=== PATIENT | male | born 1940 | race Caucasian/White ===

== ENCOUNTER 2017-04-27 18:06 | Observation (INO) | payer MEDICARE ==
[~2017-04-27] VITALS: Ht 182.9 cm; Wt 81.1 kg
--- NOTE | ~2017-04-27 | HEMODYNAMI ---
PATIENT:HEATHER ASIF MEDICAL RECORD: [id number] : 42 LOCATION:[facility] D.2116 ADMISSION DATE: 04/27/17 Generatedon:04/28/201714:55 Patient name: HEATHER ASIF Patient #: [id number] SSN: D OB: 1940 Date of study: 04/28/2017 Page: Of Hemodynamic Procedure Report Patient Data Patient Demographics Procedure consent was obtained First Name: HEATHER Gender: Male Last Name: YEFRI : 1940 Patient #: [id number] Age: 76 year(s) Race: Unknown Additional ID: [id number] Contact details Address: [address] [place] [address] State: [place] City: [place] Zip code: [address] Past Medical History Allergies Allergen Reaction Date Comments Reported Other allergy 04/28/2017 sulfa, belladonna, flomax, hytrim, zolpiderm Admission Admission Data Admission Date: 04/27/2017 Admission Time: 20:15 Room #: D.2116 Lab Results Lab Result Date: 04/28/2017 Lab Result Time: 0:00 Biochemistry Name Units Result Min Max BUN mg/dl 28 --(----)-* 7 18 Creatinine mg/dl 1.6 --(----)-* 0.6 1.3 CBC Name Units Result Min Max Hemoglobin g/dl 13.7 --(*---)-- 13.5 17.5 Procedure Procedure Types Cath Procedure Diagnostic Procedure LHC LHC w/Coronaries Miscellaneous Procedures Moderate Sedation up to 15 minutes Procedure Description Procedure Date Procedure Date: 04/28/2017 Procedure Start Time: 14:41 Procedure End Time: 14:52 Procedure Staff Name Function Yaya Hsieh MD Performing Physician Joselyn Arguello RT Monitor Dhara Cosme RT Scrub Yeny Tyler RN Nurse Procedure Data Cath Procedure Fluoroscopy Diagnostic fluoroscopy Total fluoroscopy Time: 3.1 time: 3.1 min min Diagnostic fluoroscopy Total fluoroscopy dose: 248 dose: 248 mGy mGy Contrast Material Contrast Material Type Amount (ml) Isovue 300 83 Entry Location Entry Primary Successful Side Size Upsize Upsize Entry Closure Succes sful Closure Location (Fr) 1 (Fr) 2 (Fr) Remarks Device Remarks Femoral Right 5 Fr Exoseal artery Estimated blood loss: 5 ml Diagnostic catheters Device Type Used For End Catheter Placement Cordis 5Fr JL 4.0 Left Coronary Catheter (MP) Angiography Cordis 5Fr 3DRC Catheter Right Coronary (MP) Angiography Cordis 5Fr Pigtail Multi-vessel Catheter (MP) Angiography Procedure Complications No complications Procedure Medications Medication Administration Route Dosage Oxygen NC 2 l/min Lidocaine 2% added to field 20 Heparin Flush Bag added to field 2 bags (1000units/500ml NS) 0.9% NaCl I.V. 100 ml/hr Versed I.V. 1 mg Fentanyl I.V. 50 mcg Hemodynamics Rest HGB: 13.7 (g/dl) Heart Rate: 78 (bpm) Pressure Samples Time Site Value (mmHg) Purpose Heart Use Rate(bpm) 14:49 LV 110/-2,11 Snapshot 76 14:50 AO 90/60(74) Pullback 78 14:50 LV 73/12,11 Pullback 78 Gradients Valve Time Site 1 Site 2 Mean SEP/DFP Peak To Heart Use (mmHg) (sec/min) Peak Rate (mmHg) (bpm) Aortic 14:50 LV AO 0 78 73/12,11 90/60(74) Calculations Valve P-P Mean Valve Index Valve Source Name Gradient Area Flow (cm2) Aortic 0 0 Snapshots Pre Cath Intra NCS Post Cath Vital Signs Time Heart Resp SPO2 etCO2 NIBP Rhythm Pain Sedation Rate (ipm) (%) (mmHg) (mmHg) Status Level (bpm) 14:30:27 83 12 93 0 110/71(84) NSR 0 (11) 10(A) , No pain 14:35:01 76 19 94 8.9 103/68(88) NSR 0 (11) 10(A) , No pain 14:39:35 74 17 91 0 90/59(82) NSR 0 (11) 10(A) , No pain 14:44:06 74 16 93 12.7 92/57(69) NSR 0 (11) 10(A) , No pain 14:48:36 80 16 92 13.4 95/66(83) NSR 0 (11) 10(A) , No pain Medications Time Medication Route Dose Verified Delivered Reason Notes Effe ctiveness by by 14:38:45 Oxygen NC 2 Yaya Buffie used for l/min [facility] Tyler RN procedure MD 14:38:52 Lidocaine 2% added 20ml Yaya Yaya for local to vial [facility] anesthetic field MD JACOBSON 14:38:58 Heparin Flush added 2 Yaya Yaya used for Bag to bags [facility] procedure (1000units/500ml field MD JACOBSON NS) 14:39:22 0.9% NaCl I.V. 100 Yaya Buffie Per ml/hr [facility] Tyler RN physician 14:40:25 Versed I.V. 1 mg Yaya Coreyie for [facility] Tyler RN sedation 14:40:30 Fentanyl I.V. 50 Yaya Buffie for mcg [facility] RN sedation Procedure Log Time Note 14:10:39 Joselyn Arguello RT(R) sent for patient. Start room use. 14:10:40 Time tracking: Call back 14:10:52 Plan of Care:Hemodynamics will remain stable., Cardiac rhythm will remain stable., Comfort level will be maintained., Respiratory function will remain adequate., Patient/ family verbilizes understanding of procedure., Procedure tolerated without complication., Recovers from procedure without complications.. 14:25:05 Patient received from PCU to CCL 1 Alert and oriented. Tansferred to table in Supine position. 14:25:06 Warm blankets applied, and maricarmen hugger turned on for patient comfort. 14:25:06 Correct patient and procedure confirmed by team. 14:25:08 Signed procedure consent form obtained from patient. 14:25:09 ECG and BP/O2 sat monitors applied to patient. 14:25:09 Full Disclosure recording started 14:29:42 Vital chart was started 14:32:47 Baseline sample Acquired. 14:32:54 Rhythm: sinus rhythm 14:33:02 H&P Date Dictated: 04/28/2017 New H&P dictated by physician.. 14:33:03 Pre-procedure instructions explained to patient. 14:33:04 Pre-op teaching completed and patient verbalized understanding. 14:33:05 Family in waiting room. 14:33:07 Patient NPO since Midnight. 14:34:38 Patient allergic to Other allergysulfa, belladonna, flomax, hytrim, zolpiderm 14:34:42 Is the patient allergic to Iodine/contrast media? No. 14:34:44 Was the patient premedicated? No 14:34:45 Is patient on blood thinner?Yes 14:34:49 ACC The patient was administered the following blood thiners within the last 24 hours: ACCPlavix 14:34:53 Patient diabetic? No. 14:34:55 Previous problem with sedation/anesthesia? No ? 14:34:57 Snore? Yes 14:34:59 Sleep apnea? No 14:35:00 Deviated septum? No 14:35:01 Opens mouth fully? Yes 14:35:02 Sticks out tongue? 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 No ? 14:35:27 Pre procedure: right dorsailis pedis pulse 1+ Palpable, but thready & weak; easily obliterated 14:35:31 Pre procedure: left dorsailis pedis pulse 1+ Palpable, but thready & weak; easily obliterated 14:35:35 Patient pain scale 0/10 ?. 14:35:40 IV patent on arrival in left forearm with 0.9% NaCl at O. 14:37:44 Lab Result : BUN 28 mg/dl 14:37:44 Lab Result : Creatinine 1.6 mg/dl 14:37:44 Lab Result : Hemoglobin 13.7 g/dl 14:37:49 Lab results completed and on chart. 14:38:39 Right groin area was prepped with chlora-prep and draped in sterile fashion 14:38:41 Alarms reviewed by R. N. 14:38:43 Sharps counted by scrub and verified by R.N. 14:38:45 Oxygen 2 l/min NC was administered by Yeny Tyler RN; used for procedure; 14:38:47 Physician arrived 14:38:49 --------ALL STOP TIME OUT------ 14:38:49 Final Timeout: patient, procedure, and site verified with staff and physician. All members of the team are in agreement. 14:38:52 Lidocaine 2% 20ml vial added to field was administered by Yaya Hsieh MD; for local anesthetic; 14:38:52 Right groin site verified by team. 14:38:55 Physical assessment completed. ASA score P 2 - A patient with mild systemic disease as per Yaya Hsieh MD. 14:38:58 Heparin Flush Bag (1000units/500ml NS) 2 bags added to field was administered by Yaya Hsieh MD; used for procedure; 14:38:58 Sedation plan: IV Moderate Sedation Medication:Versed, Fentanyl 14:39:04 Use device set Femoral Dx 14:39:05 Acist Syringe opened to sterile field. 14:39:05 Bag Decanter opened to sterile field. 14:39:06 Medline Cath Pack opened to sterile field. 14:39:06 Terumo 5Fr [place] Sheath opened to sterile field. 14:39:07 St Darryl 260cm J .035 wire opened to sterile field. 14:39:08 Acist Hand Control opened to sterile field. 14:39:08 Acist Manifold opened to sterile field. 14:39:09 Diagnostic Infinity 5Fr Multipack catheter opened to sterile field. 14:39:09 Tegaderm 4 x 4 opened to sterile field. 14:39:15 Procedure started. 14:39:22 0.9% NaCl 100 ml/hr I.V. was administered by Yney Tyler RN; Per physician; 14:40:25 Versed 1 mg I.V. was administered by Yeny Tyler RN; for sedation; 14:40:30 Fentanyl 50 mcg I.V. was administered by Yeny Tyler RN; for sedation; 14:41:24 Local anesthetic to right femoral artery with Lidocaine 2% by Yaya Hsieh MD.INITIAL ACCESS ONLY 14:41:26 Zero performed for pressure channel P1 14:41:31 Zero performed for pressure channel P1 14:41:39 Zero performed for pressure channel P1 14:42:00 A 5 Fr sheath was inserted into the Right Femoral artery 14:42:21 A Cordis 5Fr JL 4.0 Catheter () was advanced over the wire and used for Left Coronary Angiography. 14:43:14 LCA angiography performed. 14:43:16 Injector settings: Ml/sec: 3, Volume: 6, 14:44:54 Catheter removed. 14:44:59 A Cordis 5Fr 3DRC Catheter () was advanced over the wire and used for Right Coronary Angiography. 14:45:03 Injector settings: Ml/sec: 3, Volume: 6, 14:45:54 Bilateral carotid angiography performed. 14:46:06 Cordis 5Fr Exoseal opened to sterile field. 14:48:18 Catheter removed. 14:48:24 A Cordis 5Fr Pigtail Catheter (MP) was advanced over the wire and used for Multi-vessel Angiography. 14:49:56 LV hemodynamics recorded. 14:49:57 LV gram done using [place] 14:50:00 Injector settings: Ml/sec: 5, Volume: 15, 14:50:06 EF : 55 % 14:50:23 Catheter removed. 14:50:37 Sheath removed intact; hemostasis achieved with Exoseal to the Right Femoral artery. 14:50:39 Procedure ended.(Physican Out) 14:50:46 Fluoroscopy time 03.10 minutes. 14:50:51 Fluoroscopy dose: 248 mGy 14:50:51 Flurop Dose total: 248 14:50:55 Contrast amount:Isovue 300 83ml. 14:50:57 Sharps counted by scrub and verified by R.N. 14:51:01 Insertion/operative site no bleeding no hematoma. 14:51:05 Post-op/insertion site Right Femoral artery dressed using a 4 x 4 and Tegaderm. 14:51:08 Post right femoral artery:stable 14:51:10 Post Procedure Pulses reassessed and unchanged 14:51:14 Post procedure rhythm: unchanged. 14:51:17 Estimated blood loss: 5 ml 14:51:18 Post procedure instruction explained to patient.Patient verbalizes understanding. 14:51:19 Patient needs reinforcement of post procedure teaching. 14:51:34 Procedure type changed to Cath procedure, Diagnostic procedure, LHC, LHC w/Coronaries, Miscellaneous Procedures, Moderate Sedation up to 15 minutes 14:51:50 Procedure and supply charges have been captured, reviewed, submitted and are correct. 14:51:55 Procedure Complication : No complications 14:51:58 Vital chart was stopped 14:51:59 See physician's report for complete and final results. 14:52:02 Report given to [facility]. 14:52:05 Patient transfered to [facility] with Stretcher. 14:52:07 Procedure ended. 14:52:07 Full Disclosure recording stopped 14:52:11 End room use (Document Last) Device Usage Item Name Manufacture Quantity Catalog Hospital Part Current Minimal Lo t# / Number Charge Number Stock Stock Serial# Code Acist Acist 1 72762 [id number] 119793 [id number] 20 Syringe [employer] Inc Bag Microtek 1 2002S 496448 87340 732921 5 Decanter [employer] Inc. Medline Cardinal 1 [id number] 515480 85658 874608 5 Cath Pack Health Terumo 5Fr Terumo 1 [id number] 087505 625444 505962 [address] Dar[address] St Darryl 1 909462 782194 233547 161221 30 260cm J .035 wire Acist Hand Acist 1 26497 631648 890669 443994 5 Control Medical [employer] Inc Acist Acist 1 47882 186193 314171 497700 5 Manifold Medical Systems Inc Diagnostic Cardinal 1 DY1999 586939 31133 422226 30 Infinity Health 5Fr Multipack catheter Tegaderm 4 3M 1 1626W 783859 930734 122447 5 x 4 Cordis 5Fr Cardinal 1 448452 5 JL 4.0 Health Catheter (MP) Cordis 5Fr Cardinal 1 832818 5 3DRC Health Catheter (MP) Cordis 5Fr Cardinal 1 EX500 498750 404093 298593 10 Exoseal Health Cordis 5Fr Cardinal 1 346952 5 Pigtail Health Catheter (MP) Signature Audit [place] Stage Time Signature Unsigned Intra-Procedure 04/28/2017 Joselyn Arguello 2:55:14 PM RT(R) Signatures Monitor : Joselyn Arguello RT Signature : Date : Time : [facility] [address] [place] [address]
[2017-04-27 18:38] LABS: BASOPHILS 0.3 % (0-2); EOSINOPHILS 2.1 % (0-7); HEMATOCRIT 44.8 % (36.0-48.0); IMMATURE GRANULOCYTES 0.3 % (0-5); LYMPHOCYTES 17.6 % (15-50); MCH 34.2 pg (26.0-34.0); MCHC 33.5 g/dL (31.0-37.0); MCV 102.1 fL (80.0-100.0); MEAN PLATELET VOLUME 10.3 fL (7.4-10.4); MONOCYTES 6.2 % (2-11); NEUTROPHILS 73.5 % (40-80); PLATELET COUNT 166 10x3/uL (130-400); RBC 4.39 10x6/uL (4.00-5.40); RDW 13.6 % (11.5-14.5); WBC 8.7 10x3/uL (4.8-10.8)
[2017-04-27 19:10] LABS: ALBUMIN 3.4 g/dL (3.4-5.0); ALKALINE PHOSPHATASE 98 U/L (46-116); ALT (SGPT) 21 U/L (10-68); BILIRUBIN - TOTAL 0.58 mg/dL (0.2-1.3); CALC OSMOLALITY 296 mosm/kg (275-300); CALCIUM 9.3 mg/dL (8.5-10.1); CARBON DIOXIDE 24.9 mmol/L (21.0-32.0); CHLORIDE - SERUM 110 mmol/L (98-107); CREATININE - SERUM 1.5 mg/dL (0.6-1.3); GLUCOSE 131 mg/dL (74-106); POTASSIUM - SERUM 4.2 mmol/L (3.5-5.1); PROTEIN - SERUM 7.4 g/dL (6.4-8.2); SODIUM 146 mmol/L (136-145); UREA NITROGEN 24 mg/dL (7-18); eGFR NON AFRICAN AMERICAN 36 mL/min (90-120)
[2017-04-27 19:27] LABS: CHOL - HDL RATIO 6.4 ratio (2.3-4.1); CHOLESTEROL, TOTAL 244 mg/dL (0-200); CKMB 0.8 U/L (0.0-3.6); CREATINE KINASE 51 UL (21-215); HDL CHOLESTEROL 38 mg/dL (32-96); LDL CHOLESTEROL 165 mg/dL (0-100); LDL-HDL RATIO 4.3 ratio (1.5-3.5); TRIGLYCERIDE 209 mg/dL (30-200)
[2017-04-27 19:32] LABS: TROPONIN-I 0.063 ng/mL (0.000-0.060)
[2017-04-27 20:00] VITALS: BP 109/68
[2017-04-27] MEDS ORDERED: OMEPRAZOLE40 MG PO (21:18)
[2017-04-27] MEDS ORDERED: SYNTHROID75 MCG PO (21:18)
[2017-04-27] MEDS ORDERED: FOLIC ACID1 MG PO (21:19)
[2017-04-27] MEDS ORDERED: ZYLOPRIM300 MG PO (21:20)
[2017-04-27] MEDS ORDERED: K-DUR20 MEQ PO (21:21)
[2017-04-27] MEDS ORDERED: LISINOPRIL-HCTZ1 T13 PO (21:21)
[2017-04-27] MEDS ORDERED: LEXAPRO20 MG PO (21:22)
[2017-04-27] MEDS ORDERED: ZOCOR20 MG PO (21:23)
[2017-04-27] MEDS ORDERED: TENORMIN25 MG PO (21:23)
[2017-04-27 22:31] VITALS: BP 100/63; Ht 182.9 cm; Wt 81.1 kg
--- NOTE | 2017-04-27 22:43 | NUR ---
PT'S WFE RAN OUT OF ROOM AT 2225 AND STATED PT WAS SITTING ON SIDE OF BED AND FELL OVER. PT FOUNDS IN POSITION BY SIDE OF BED. NO NEURO DEFICIT NOTED. ALERT AND ORIENTED TO PERSON, PLACE AND TIME. TE. EQUAL AND STRONG HAND AND FOOT STRENGTH. PT LOGGED ROLLED ONTO A BLANKET AND LIFTED WITH STAFF X4 TO BED. EKG DONE. DR ST.JOHN DIAZ.
--- NOTE | 2017-04-27 22:46 | NUR ---
NOTIFIED DR. SUAREZ THAT PT FELL, WAS SITTING ON SIDE OF BED, VOMITTING AND FELL TO FLOOR, VITALS-100/63, R-18, , REMOVED NITRO PATCH, PT IS ALERT, WILL DO NEURO CHECKS,
[2017-04-28] VITALS: BP 78/50
[2017-04-28 00:59] LABS: TROPONIN-I 0.392 ng/mL (0.000-0.060)
--- NOTE | 2017-04-28 02:10 | NUR ---
EKG COMPLETE, RECHECK BP-85/57, WILL CONTINUE TO MONITOR
[2017-04-28 04:00] VITALS: BP 86/56
[2017-04-28 06:53] LABS: BASOPHILS 0.1 % (0-2); EOSINOPHILS 0.1 % (0-7); HEMATOCRIT 40.6 % (42.0-54.0); HEMOGLOBIN 13.7 g/dL (13.5-17.5); IMMATURE GRANULOCYTES 0.3 % (0-5); LYMPHOCYTES 11.6 % (15-50); MCH 34.3 pg (26.0-34.0); MCHC 33.7 g/dL (31.0-37.0); MCV 101.5 fL (80.0-100.0); MEAN PLATELET VOLUME 10.7 fL (7.4-10.4); MONOCYTES 7.2 % (2-11); NEUTROPHILS 80.7 % (40-80); PLATELET COUNT 160 10x3/uL (130-400); RDW 13.6 % (11.5-14.5); WBC 9.5 10x3/uL (4.8-10.8)
[2017-04-28 07:21] LABS: CALC OSMOLALITY 297 mosm/kg (275-300); CARBON DIOXIDE 21.1 mmol/L (21.0-32.0); CHLORIDE - SERUM 111 mmol/L (98-107); CKMB 1.9 U/L (0.0-3.6); CREATINE KINASE 90 UL (21-232); CREATININE - SERUM 1.6 mg/dL (0.6-1.3); GLUCOSE 118 mg/dL (74-106); POTASSIUM - SERUM 4.4 mmol/L (3.5-5.1); SODIUM 146 mmol/L (136-145); UREA NITROGEN 28 mg/dL (7-18); eGFR NON AFRICAN AMERICAN 45 mL/min (90-120)
[2017-04-28 07:24] LABS: TROPONIN-I 0.567 ng/mL (0.000-0.060)
--- NOTE | 2017-04-28 07:30 | NUR ---
RECEIVED PT LYING IN BED ON RT SIDE AAOX4 RESP UNLABORED DENIES ANY NEEDS OR DISCOMFORT AT THIS TIME
[2017-04-28 08:00] VITALS: BP 100/63
[2017-04-28 11:36] LABS: CKMB 2.2 U/L (0.0-3.6); CREATINE KINASE 65 UL (21-232)
[2017-04-28 11:37] LABS: TROPONIN-I 0.508 ng/mL (0.000-0.060)
[2017-04-28 12:00] VITALS: BP 95/71
[2017-04-28 16:00] VITALS: BP 103/71
--- NOTE | 2017-04-28 19:23 | NUR ---
REVIEWED DISCHARGE INSTRUCTIONS WITH PT AND BOTH STATE UNDERSTANDING COPY GIVEN DCD SALINE LOCK DCD TO LAC WITH IV CATHETER INTact SITE FREE OF REDNESS OR EDEMA PT DISCHARGED HOME LEFT UNIT IN STABLE CONDITION WITH ALL PERSONAL BELONGINGS
--- NOTE | 2017-04-29 11:39 | HP ---
PATIENT: HEATHER ASIF MEDICAL RECORD: [id number] ACCOUNT: [id number] LOCATION:[facility].2115 : 41 ADMISSION DATE: 04/27/17 HISTORY AND PHYSICAL EXAMINATION HISTORY OF PRESENT ILLNESS: A 76-year-old gentleman with no known history of coronary artery disease. He has a history of hypertension, hyperlipidemia, paralyzed right hemidiaphragm, actually has been undergoing pulmonary rehab for strengthening of breathing status. He had an episode yesterday, walking, had severe chest pain, near syncope, had an episode again with syncope. He has been having some orthostatic type symptomatology, noted to have abnormal ECG with nonspecific ST-T changes. Cardiac enzymes are elevated at this point. He is admitted for further evaluation. PAST MEDICAL HISTORY: 1. History of paralyzed right hemidiaphragm. 2. Hypertension. 3. Hyperlipidemia. 4. Hypothyroidism, on replacement. 5. Gouty arthritis. MEDICATIONS: Allopurinol 300 mg p.o. daily, Synthroid 75 mcg daily, omeprazole 40 daily, Lexapro 20 daily, simvastatin 20 daily, atenolol 12.5 mg at bedtime, lisinopril 20/25 at bedtime. ALLERGIES: INCLUDE SULFA, BELLADONNA, FLOMAX, HYTRIN, AMBIEN. SOCIAL HISTORY: , lives here in [place], able to take care of his ADLs. Currently undergoing cardiac rehabilitation. REVIEW OF SYSTEMS: The patient reports easy bruising but reports no swollen glands. The patient reports no fever, no night sweats, no significant weight gain, no significant weight loss. No significant exercise tolerance. The patient reports no dry eyes, no irritation, no vision change. Patient reports no difficulty hearing and no ear pain. Patient reports no frequent nose bleeds or nose and sinus problems. Patient reports on arm pain on exertion. No shortness of breath while lying down. No history of heart murmur. Patient reports no cough, no wheezing or coughing up blood. Patient reports no abdominal pain, no vomiting. Normal appetite. No diarrhea and not vomiting blood. No nausea and no constipation. Patient reports no incontinence. No difficulty urinating. No hematuria. No increased frequency. Patient reports no muscle aches. No weakness, no arthralgias, no back pain. No swelling of the extremities. Patient reports no abnormal mole, no jaundice, no rashes. Reports no loss of consciousness. No weakness and no numbness. No seizures, dizziness, or headaches. The patient reports no depression, no sleep disturbance, feeling safe in a relationship and no alcohol abuse. Patient reports on fatigue. Reports no runny nose or sinus pressure. No itching, no hives, and no frequent sneezing. PHYSICAL EXAMINATION: GENERAL: Pleasant gentleman in no acute distress. VITAL SIGNS: Blood pressure 100/63, pulse 85 and regular. HEENT: Normocephalic, atraumatic. NECK: No JVD or bruit. HEART: Regular, 2/6 systolic ejection murmur. HISTORY AND PHYSICAL [id number] HEATHER ASIF LUNGS: Slight prolonged expiratory. No active wheezing. ABDOMEN: Soft, nontender. EXTREMITIES: Pulses are well preserved, 2+ with no edema. NEUROLOGIC: Currently grossly intact. DIAGNOSTIC DATA: ECG shows lateral ST-T changes, poor R-wave progression. IMPRESSION: Syncope, transient ischemic attack, non ST-elevation myocardial infarction, and amaurosis. PLAN: We will plan for diagnostic angiography, 4-vessel arteriography, further recommendations based on above. TRANSINT:[id number] Voice Confirmation ID: [id number] DOCUMENT ID: [id number] JOSEPHINE MAIN MD at 1139 CC: [id number] DICTATION DATE: 04/28/17902 TICKET PRINTER AND TAGGER: 04/28/17 09 DIS IN 04/28/17 [facility] [address] [place] [address]
--- NOTE | 2017-04-29 11:39 | OP ---
PATIENT NAME: HEATHER ASIF MEDICAL RECORD: [id number] :42 LOCATION:D.M2 D.2116 ADMISSION DATE:04/27/17 SURGEON: JOSEPHINE MAIN MD DATE OF OPERATION: 04/28/2017 PROCEDURE: Left heart catheterization, selective coronary angiography, +4 vessel, right femoral approach. CATHETERS: A 5-Luxembourger sheath, 5/4 left and right Radha, 5/4 pig. The procedure was tolerated and the patient was returned to barrera, sheath removed. ExoSeal device was placed. FINDINGS: Left ventriculography in 30-degree [place] view: Normal wall motion. Normal systolic function. CORONARY ANATOMY. LEFT MAIN: Left main is free of disease. LAD: Free of disease in the diagonal system. CIRCUMFLEX: Free of disease in the marginal system. RIGHT CORONARY ARTERY: Dominant artery, gives rise to PDA, free of disease. IMPRESSION: Normal systolic function. Normal coronary anatomy. FOUR-VESSEL ARTERIOGRAPHY: 1. Right common carotids smooth-walled vessel, free of disease. 2. Right internal carotid smooth-walled vessel, free of disease. 3. Right external carotid smooth-walled vessel, free of disease. 4. Left common carotid smooth-walled vessel, free of disease. 5. Left internal carotid smooth-walled vessel, free of disease. 6. Left external carotid smooth-walled vessel, free of disease. IMPRESSION: Normal carotid anatomy. TRANSINT:[id number] Voice Confirmation ID: [id number] DOCUMENT ID: [id number] JOSEPHINE MAIN MD at 1139 CC: [id number] DICTATION DATE: 04/28/17 1501 ASSOCIATE CURATOR: 04/28/17 1612 DIS IN 04/28/17 [facility] [address] [place] [address]
== END 2017-04-28 19:23 | disposition home or self-care (01) ==
LOC: EDSEX 18:06 → D.ER 18:06 → OBSVTIME 20:15 → D.M2 20:15
PROVIDERS: Emergency Medicine; Family Medicine; ADMIT Internal Medicine Interventional Cardiology
DX: R07.9 Chest pain, unspecified (principal); R55 Syncope and collapse; I10 Essential (primary) hypertension; E78.5 Hyperlipidemia, unspecified; E03.9 Hypothyroidism, unspecified; R94.31 Abnormal electrocardiogram [ECG] [EKG]